=== PATIENT | male | born 1965 | race Hispanic/Latino ===

== ENCOUNTER 2016-11-03 08:55 | Day surgery (SDC) | payer OTHER ==
[~2016-11-03] VITALS: Ht 160 cm; Wt 72.6 kg
[~2016-11-03 08:55] MED LIST: 0.9% Sodium Chloride 1,000 ML IV SCH; Sodium Chloride LOK Flush 10 mL Syringe IV PRN; fentaNYL-PF 50 mCg/mL 2 mL Inj IVPUSH PRN; no meds
[2016-11-03 09:21] VITALS: BP 114/81; PULSE 59; O2SAT 98
[2016-11-03] MEDS ORDERED: CHOL100045 PO (09:21)
[2016-11-03 10:33] VITALS: BP 115/69; PULSE 57; RESP 15; O2SAT 92
[2016-11-03 11:22] VITALS: BP 108/76; PULSE 55; RESP 16; O2SAT 97
[2016-11-03 11:30] VITALS: BP 114/76; PULSE 66; RESP 16; O2SAT 97
--- NOTE | 2016-11-03 22:28 | ENDO ---
[address] [address] ENDOSCOPY PROCEDURE PATIENT: PAULINO CHAU : 1965 MR#: [id number] ADMIT: 11/03/2016 JOB ID: [id number] DATE OF PROCEDURE: PROCEDURE: Esophagogastroduodenoscopy. INDICATION: Suspected cirrhosis based on FibroSure testing as well as history of chronic hepatitis C. Also, endoscopy being performed for evaluation of gastroesophageal reflux symptoms. The patient's ASA classification is II, Mallampati score is 2. MEDICATIONS: 1. Versed 2 mg. 2. Fentanyl 75 mcg. INSTRUMENT USED: [id number]. PROCEDURE DETAILS: After informed consent was obtained, the patient was brought to the GI suite, where he was placed on oxygen via nasal cannula and monitored with continuous pulse oximeter, telemetry, and blood pressure monitoring. A time-out was performed. Then, he was placed in the left lateral decubitus position and medications were administered for sedation. A bite block was placed. The standard EGD scope was then inserted through the bite block and advanced under direct visualization to the second portion of duodenum without difficulty. FINDINGS: 1. Normal appearing duodenal bulb, first and second portion. 2. Normal appearing pylorus. In the antrum and body of the stomach mucosa had an erythematous, edematous appearance suggestive of gastritis. Multiple random biopsies were obtained. 3. Retroflexed views in the gastric body revealed a normal appearing cardia and fundus. No gastric varices were appreciated. 4. The GE junction was at approximately 41 cm. Arising from the GE junction there was a short tongue of salmon-colored mucosa suggestive of Ambrose's. This extended to approximately 39 cm. Multiple biopsies were obtained. The remainder of esophagus otherwise appeared unremarkable. No esophageal varices appreciated on today's exam. IMPRESSION: 1. Gastritis. 2. 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 Await biopsy results. 2. Recommend starting PPI daily. 3. Reflux precautions. 4. Follow up in GI clinic in 2-4 weeks. COMPLICATIONS: None. ESTIMATED BLOOD LOSS: Less than 5 mL.
--- NOTE | 2016-11-04 10:12 | PATH ---
SURGICAL PATHOLOGY Attending Physician:Damari Lo CASE STATUS: Signed Out PATIENT NAME: PAULINO CHAU PID: [id number] : 1965 DATE COLLECTED:11/03/2016 20:52 SPECIMEN: 1: Gastric, Biopsy 2: Esophagus, Biopsy CLINICAL HISTORY: 1). RANDOM GASTRIC 2). DISTAL ESOPHAGUS FINAL DIAGNOSIS: 1.RANDOM GASTRIC BIOPSY: SEVERE DIFFUSE CHRONIC GASTRITIS, FOCALLY ACTIVE INVOLVING ANTRAL MUCOSA. Immunohistochemistry for Helicobacter pending, to be reported by addendum. Negative for intestinal metaplasia. Negative for dysplasia and malignancy. 2.DISTAL ESOPHAGUS BIOPSY: SQUAMOUS MUCOSA AND GASTRIC CARDIA-TYPE MUCOSA POSITIVE FOR SPECIALIZED METAPLASIA OF BERTRAND' S-TYPE ESOPHAGUS. FOCUS OF PANCREATIC ACINAR METAPLASIA. Negative for dysplasia and malignancy. Negative for squamous intraepithelial eosinophils. ICD10 K29.70 K22.70 GROSS DESCRIPTION: The specimen is received in two formalin filled containers labeled with the patient's name. 1). The specimen a sublabeled "random gastric" and consists of a 0.5 x 0.2 x 0.1 CM portion of tissue which is entirely submitted in cassettes 1A. 2). The specimen is sublabeled "distal esophagus" and consists of 2 portions of tissue which aggregate to 0.3 x 0.3 x 0.2 CM. The specimen is entirely submitted in cassette 2A. 11/03/2016 [facility] MICRO DESCRIPTION: See diagnosis. ICD-9 CODES: CPT CODES: 1: 83876, 11205 2: 73288 PROCEDURE/ADDENDA: Immunohistochemistry SPI Interpretation {Not Entered} Results-Comments IMMUNOHISTOCHEMISTRY RESULTS 1.RANDOM GASTRIC BIOPSIES: POSITIVE FOR HELICOBACTER PYLORI BY IMMUNOHISTOCHEMISTRY. This test was developed and its performance characteristics determined by [facility]. It has not been cleared or approved by the [place]. Food and Drug Administration. The FDA has determined that such clearance or approval is not necessary. This test is used for clinical purposes. It should not be regarded as investigational or for research. Electronically Signed Out Familia Bruno MD Electronically Signed Out Familia Bruno MD [facility] [address] [place] [address], [place] [address] Technical component performed at [facility], [address], [place], [address]
== END 2016-11-03 23:59 | disposition home or self-care (01) ==
LOC: END 08:55
PROVIDERS: ATTEND Internal Medicine Gastroenterology
DX: K29.50 Unspecified chronic gastritis without bleeding (principal); B96.81 Helicobacter pylori [H. pylori] as the cause of diseases classified elsewhere; K22.70 Barrett's esophagus without dysplasia; B18.2 Chronic viral hepatitis C
CPT/HCPCS: 43239; G0500; J2250; J3010; J7030